=== PATIENT | male | born 1990 | race Two or more races ===

== ENCOUNTER 2017-12-12 20:42 | Emergency (ER) | payer SELFPAY ==
[~2017-12-12] VITALS: Ht 180.3 cm; Wt 90.7 kg
[2017-12-12] MEDS ORDERED: CYCLOBENZAPRINE10 MG ORAL (21:12)
[2017-12-12] MEDS ORDERED: IBUPROFEN800 MG ORAL (21:12)
[2017-12-12 21:14] VITALS: BP 132/81
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
[2017-12-12 22:05] VITALS: BP 132/81
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
== END 2017-12-12 21:55 | disposition home or self-care (01) ==
LOC: EMR 21:30
DX: S16.1XXA Strain of muscle, fascia and tendon at neck level, initial encounter (principal); S23.3XXA Sprain of ligaments of thoracic spine, initial encounter; V43.52XA Car driver injured in collision with other type car in traffic accident, initial encounter; Y92.488 Other paved roadways as the place of occurrence of the external cause; I10 Essential (primary) hypertension; Z91.018 Allergy to other foods
CPT/HCPCS: 72040; 72070; 99284